=== PATIENT | male | born 1970 | race Caucasian/White ===

== ENCOUNTER → 2022-01-15 12:34 | Outpatient (BNVA) | payer MEDICARE, SELFPAY | PROVIDERS: Family Provider Family Medicine; Visit Provider Family Medicine | DX: I10 Essential (primary) hypertension (principal); E11.9 Type 2 diabetes mellitus without complications; E78.5 Hyperlipidemia, unspecified; L40.0 Psoriasis vulgaris | CPT/HCPCS: 80053; 80061; 82043; 83036; 85025 ==

== ENCOUNTER → 2022-05-01 13:03 | Outpatient (BNVA) | payer MEDICARE, SELFPAY | PROVIDERS: Family Provider Family Medicine; PCP Family Medicine; Visit Provider Family Medicine | DX: E11.9 Type 2 diabetes mellitus without complications (principal) | CPT/HCPCS: 80053; 83036 ==

== ENCOUNTER 2022-06-26 09:17 | Outpatient (CLI) | payer MEDICARE, MEDICAID, SELFPAY ==
[2022-06-26] MEDS: iohexol 350 mg/mL 500 mL Btl (per mL) IV (09:49)
[2022-06-26] MEDS: iohexol 350 mg/mL 500 mL Btl (per mL) PO (09:49)
[2022-06-26 10:20] LABS: Basophils # 0.1 10^3/uL (0.0-0.1); Basophils % 0.8 %; Eosinophils # 0.5 10^3/uL (0.0-0.8); Eosinophils % 4.6 %; Hematocrit 46.4 % (42.0-52.0); Hemoglobin 15.6 g/dL (11.7-16.6); Lymphocytes # 2.7 10^3/uL (0.8-4.8); Lymphocytes % 23.8 %; Mean Corpuscular HGB Conc 33.6 g/dL (30.0-36.0); Mean Corpuscular Volume 98.1 fl (80-94); Mean Platelet Volume 9.1 fL (7.4-10.4); Monocytes # 1.1 10^3/uL (0.2-0.9); Monocytes % 9.3 %; Neutrophils # 6.95 10^3/uL (1.8-7.7); Neutrophils % 61.1 %; Nucleated Red Blood Cells % 0 %; Platelet Count 292 10^3/cmm (130-400); Red Blood Count 4.73 10^6/uL (4.1-5.3); Red Cell Distribution Width 12.4 % (12.1-15.1); White Blood Count 11.4 10^3/uL (4.0-10.0)
[2022-06-26 10:44] LABS: Alanine Aminotransferase 38 U/L (0-41); Alkaline Phosphatase 179 U/L (40-130); Anion Gap 14.6 (5-19); Aspartate Amino Transferase 23 U/L (0-40); Blood Urea Nitrogen 13 mg/dL (6-20); Carbon Dioxide 29 mmol/L (22-29); Chloride 96 mmol/L (98-107); Globulin 2.6 g/dL (1.3-4.6); Glomerular Filtration Rate 88.6 mL/min (90-130); Glucose 250 mg/dL (65-115); Osmolality Calculated 289 mOsm/kg (285-295); Potassium 4.6 mmol/L (3.5-5.1); Sodium 135 mmol/L (136-145); Total Bilirubin 0.6 mg/dL (0.15-1.2); Total Protein 6.6 g/dL (6.6-8.7)
[2022-06-26 11:08] LABS: HIV 1 & 2 Antibody Non-Reactive (Non-Reactiv); HIV 1 & 2 Antigen Non-Reactive (Non-Reactiv)
[2022-06-26 11:17] LABS: Hepatitis A Antibody IgM Non-Reactive (Nonreactive); Hepatitis B Core AB, Total Non-Reactive (Nonreactive); Hepatitis B Surface AB 3.5 (11.5-1000); Hepatitis B Surface Antigen Non-Reactive (Nonreactive); Hepatitis C Virus Antibody Non-Reactive (Nonreactive)
--- NOTE | 2022-06-26 16:00 | CT_ITS ---
WS: [id number] CT ABDOMEN PELVIS TECHNIQUE: Contrast-enhanced CT of the abdomen and pelvis with coronal and sagittal reformatted image s. CLINICAL INFORMATION: R10.31 - Right lower quadrant pain COMPARISON: CT 2014 DLP: 962.[address] scans at [facility] use at least one of these dose optimization techniques: automated e xposure control; mA and/or kV adjustment per patient size (includes targeted exams where dose is matc hed to clinical indication); or iterative reconstruction. FINDINGS: Hepatomegaly diffuse fatty infiltration the liver. Cholecystectomy clips. Normal portal vein and sple mary vein. Normal pancreatic parenchymal enhancement. Splenic granulomas. Normal GE junction. Lung bas es are well aerated. Adrenal glands are normal. Normal renal parenchymal enhancement. No hydronephros is. Urine distended bladder. Enlarged prostate. Sigmoid constipation. A few sigmoid diverticuli. Diastases of the rectus abdominis with ventral bulgi ng of small and large bowel. No evidence of incarceration or obstruction. This is similar in appearan ce to previous. Normal caliber abdominal aorta. Celiac and SMA are patent. No periaortic or retroperitoneal lymphaden opathy. CT/CT abdomen pelvis w con* [id number] IMPRESSION: 1. Hepatomegaly diffuse fatty infiltration liver. 2. Cholecystectomy. 3. Normal renal parenchymal enhancement. No hydronephrosis. 4. Urine distended bladder. Prominent prostate. 5. Diastases of the rectus abdominis musculature with ventral bulging of mesen teric fat with small and large bowel. No incarceration or obstruction. This is similar in appearance to previous. 6. No other acute findings..
[2022-06-30 12:24] LABS: Quantiferon Mitogen >10.00 IU/mL; Quantiferon Nil 0.03 IU/mL; Quantiferon Plus TB2 0.01 IU/mL; Quantiferon TB Gold NEGATIVE (NEGATIVE)
== END 2022-06-26 09:18 | disposition home or self-care (01) ==
LOC: RAD 09:22
PROVIDERS: Dermatology; PCP Family Medicine; Visit Provider Family Medicine
DX: Z79.899 Other long term (current) drug therapy (principal); R16.0 Hepatomegaly, not elsewhere classified; K76.0 Fatty (change of) liver, not elsewhere classified; Z90.49 Acquired absence of other specified parts of digestive tract
CPT/HCPCS: 36415; 74177; 80053; 85025; 86480; 86705; 86706; 86709; 86803; 87340; 87806; Q9967

== ENCOUNTER → 2022-09-07 12:48 | Outpatient (BNVA) | payer MEDICARE, SELFPAY | PROVIDERS: PCP Family Medicine; Visit Provider Dermatology | DX: L02.225 Furuncle of perineum (principal) | CPT/HCPCS: 99214 ==

== ENCOUNTER → 2022-09-11 08:05 | Outpatient (BNVA) | payer MEDICARE, SELFPAY | PROVIDERS: PCP Family Medicine; Visit Provider Family Medicine | DX: E11.9 Type 2 diabetes mellitus without complications (principal); F17.210 Nicotine dependence, cigarettes, uncomplicated; I10 Essential (primary) hypertension; E78.5 Hyperlipidemia, unspecified | CPT/HCPCS: 80053; 83036 ==

== ENCOUNTER 2022-09-21 11:04 | Outpatient (CLI) | payer MEDICARE, SELFPAY ==
--- NOTE | 2022-09-21 11:15 | CT_ITS ---
WS: [id number] LDCT LUNG CANCER SCREENING HISTORY: screening TECHNIQUE: Axial imaging performed from the apices to 1 cm below the costophrenic angles. Coronal and sagittal reformats are submitted with axial MIP series. All CT scans at [facility] use at least one of these dose optimization techniques: automated exposure control; mA and/or kV adjustment per patient size (includes targeted exams where dose is matched to clinical indication); or iterativ e reconstruction. DLP: 108.29 mGy.cm DIvol: Mean CTDIvol: 2.50 (mGy) COMPARISON: None available. Diagnostic quality: Satisfactory Lungs: No pulmonary nodule or mass. No pneumonia. No endobronchial lesions. Heart: Normal size heart with no pericardial effusion.. Other findings: No mediastinal or hilar adenopathy. Normal size aortic and pulmonary artery. Normal a drenal glands. Prior cholecystectomy. CT/CT lung screening [id number] IMPRESSION: LUNG-RADS: 1-Negative FOLLOW UP: 12 Month: Continue annual screening with LDCT OTHER FINDINGS (S MODIFIER): None.
== END 2022-09-21 11:05 | disposition home or self-care (01) ==
PROVIDERS: PCP Family Medicine; Visit Provider Family Medicine
DX: Z12.2 Encounter for screening for malignant neoplasm of respiratory organs (principal); F17.210 Nicotine dependence, cigarettes, uncomplicated
CPT/HCPCS: 71271; 80053; 83036

== ENCOUNTER 2022-12-11 10:20 | Emergency (ER) | payer MEDICARE, MEDICAID, SELFPAY ==
[2022-12-11 10:49] VITALS: BP 126/90; PULSE 93; RESP 16; TEMP 36.6; O2SAT 95; BMI 31.1
[2022-12-11 11:24] LABS: Basophils # 0.1 10^3/uL (0.0-0.1); Basophils % 0.9 %; Eosinophils # 0.4 10^3/uL (0.0-0.8); Eosinophils % 4.4 %; Hematocrit 52.3 % (37-53); Lymphocytes # 2.3 10^3/uL (0.8-4.8); Mean Corpuscular HGB Conc 36.1 g/dL (30-55); Mean Corpuscular Hemoglobin 34.4 pg (27-33); Mean Corpuscular Volume 95.3 fl (82-101); Mean Platelet Volume 9.7 fL (7.4-10.4); Monocytes # 1.1 10^3/uL (0.2-0.9); Monocytes % 11.4 %; Neutrophils # 5.39 10^3/uL (1.8-7.7); Neutrophils % 57.8 %; Nucleated Red Blood Cells % 0 %; Platelet Count 209 10^3/cmm (157-399); Red Blood Count 5.49 10^6/uL (3.85-5.65); Red Cell Distribution Width 12.5 % (12.1-15.1); White Blood Count 9.32 10^3/uL (3.29-11.43)
[2022-12-11 11:42] LABS: Alanine Aminotransferase 23 U/L (0-41); Albumin Level 4.3 g/dL (3.5-5.2); Alkaline Phosphatase 131 U/L (40-130); Blood Urea Nitrogen 12 mg/dL (6-20); Calcium 9.3 mg/dL (8.5-10.5); Carbon Dioxide 23 mmol/L (22-29); Chloride 98 mmol/L (98-107); Globulin 2.6 g/dL (1.3-4.6); Glomerular Filtration Rate 141.5 mL/min (90-130); Glucose 362 mg/dL (65-115); Lipase 31 U/L (13-60); Osmolality Calculated 290 mOsm/kg (285-295); Sodium 133 mmol/L (136-145); Total Bilirubin 0.9 mg/dL (0.15-1.2); Total Protein 6.9 g/dL (6.6-8.7)
[2022-12-11 11:45] LABS: Anion Gap 16.4 (5-19); Aspartate Amino Transferase 17 U/L (0-40); Potassium 4.4 mmol/L (3.5-5.1)
== END 2022-12-11 13:06 | disposition left against medical advice (07) ==
LOC: ER 10:29
PROVIDERS: Physician Assistant; Emergency Provider Family Medicine; PCP Family Medicine
DX: Z53.21 Procedure and treatment not carried out due to patient leaving prior to being seen by health care provider (principal)
CPT/HCPCS: 36415; 80053; 83690; 85025; 99283

== ENCOUNTER → 2023-04-22 10:05 | Outpatient (BNVA) | payer MEDICARE, MEDICAID, SELFPAY | PROVIDERS: PCP Family Medicine; Visit Provider Dermatology | DX: L40.0 Psoriasis vulgaris (principal); L30.4 Erythema intertrigo | CPT/HCPCS: 99214 ==

== ENCOUNTER → 2023-05-05 12:20 | Outpatient (BNVA) | payer MEDICARE, OTHER, SELFPAY | PROVIDERS: PCP Clinical Nurse Specialist Adult Health; Visit Provider Clinical Nurse Specialist Adult Health | DX: E78.5 Hyperlipidemia, unspecified (principal); E11.9 Type 2 diabetes mellitus without complications; I10 Essential (primary) hypertension | CPT/HCPCS: 80053; 80061; 83036; 85025 ==

== ENCOUNTER → 2023-06-22 14:02 | Outpatient (BNVA) | payer MEDICARE, MEDICAID, OTHER, SELFPAY | PROVIDERS: PCP Clinical Nurse Specialist Adult Health; Visit Provider Dermatology | DX: L40.0 Psoriasis vulgaris (principal); Z79.899 Other long term (current) drug therapy; L30.4 Erythema intertrigo; D22.5 Melanocytic nevi of trunk; I83.91 Asymptomatic varicose veins of right lower extremity | CPT/HCPCS: 99214 ==

== ENCOUNTER 2023-06-30 10:23 | Outpatient (CLI) | payer MEDICARE, MEDICAID, SELFPAY ==
[2023-07-02 16:50] LABS: Quantiferon Mitogen 7.84 IU/mL; Quantiferon Nil 0.05 IU/mL; Quantiferon Plus TB1 0.02 IU/mL; Quantiferon Plus TB2 0.01 IU/mL; Quantiferon TB Gold NEGATIVE (NEGATIVE)
== END 2023-06-30 10:24 | disposition home or self-care (01) ==
LOC: LAB 10:27
PROVIDERS: PCP Clinical Nurse Specialist Adult Health; Visit Provider Dermatology
DX: Z79.899 Other long term (current) drug therapy (principal)
CPT/HCPCS: 36415; 86480

== ENCOUNTER 2023-09-18 20:52 | Emergency (ER) | payer MEDICARE, MEDICAID, SELFPAY ==
[2023-09-18 20:57] VITALS: BP 109/69; PULSE 128; RESP 20; TEMP 36.8; O2SAT 99; BMI 28.0
--- NOTE | 2023-09-18 21:57 | XRR_ITS ---
PROCEDURE INFORMATION: Exam: XR Chest Exam date and time: 09/18/2023 10:01 PM Age: 53 years old Clinical indication: Shortness of breath; Patient HX: C/O SOB. History of gastric cancer. ; Additional info: Amphetamine use, SOB TECHNIQUE: Imaging protocol: Radiologic exam of the chest. Views: 1 view. COMPARISON: CT lung screening [id number] 09/21/2022 11:28 AM FINDINGS: Lungs: Unremarkable. No consolidation. Pleural spaces: Unremarkable. No pleural effusion. No pneumothorax. Heart/Mediastinum: Unremarkable. No cardiomegaly. Bones/joints: Mild dextroscoliosis. XR/XR chest 1V portable [id number] IMPRESSION: No acute findings.
--- NOTE | 2023-09-18 21:57 | ECG_ITS ---
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 Measurements Intervals [place] Rate: 109 P: -12 [place]: 110 QRS: 20 QRSD: 88 T: 59 QT: 349 QTc: 471 Interpretive Statements SINUS TACHYCARDIA WITH SHORT [place] INTERVAL ABNORMAL RHYTHM ECG Compared to ECG 11/14/2015 23:15:43 No significant changes Electronically Signed On 09-19-2023 11:41:19 CDT by Jose Glass M.D. [email or web address]
--- NOTE | 2023-09-18 22:00 | PC.NURSE ---
Questioned patients intentions on coming to ER, pt states he is upset with himself for doing drugs after being clean and wants help staying clean. Pt denies any suicidal or homicidal thoughts. Pt is pleasant and corporative
[2023-09-18 22:03] LABS: Basophils # 0.1 10^3/uL (0.0-0.1); Basophils % 0.7 %; Eosinophils # 0.4 10^3/uL (0.0-0.8); Lymphocytes # 2.7 10^3/uL (0.8-4.8); Lymphocytes % 20.2 %; Mean Corpuscular HGB Conc 34.6 g/dL (30-55); Mean Corpuscular Hemoglobin 33.9 pg (27-33); Mean Corpuscular Volume 97.8 fl (82-101); Mean Platelet Volume 10.2 fL (7.4-10.4); Monocytes # 1.9 10^3/uL (0.2-0.9); Monocytes % 14.4 %; Neutrophils # 8.24 10^3/uL (1.8-7.7); Neutrophils % 61.3 %; Nucleated Red Blood Cells % 0 %; Platelet Count 226 10^3/cmm (157-399); Red Blood Count 5.11 10^6/uL (3.85-5.65); Red Cell Distribution Width 12.3 % (12.1-15.1); White Blood Count 13.44 10^3/uL (3.29-11.43)
[2023-09-18 22:24] LABS: Alanine Aminotransferase 16 U/L (0-41); Albumin Level 3.9 g/dL (3.5-5.2); Alkaline Phosphatase 157 U/L (40-130); Anion Gap 18.1 (5-19); Aspartate Amino Transferase 12 U/L (0-40); Blood Urea Nitrogen 29 mg/dL (6-20); Calcium 9.6 mg/dL (8.5-10.5); Carbon Dioxide 21 mmol/L (22-29); Chloride 96 mmol/L (98-107); Creatinine Clr Calc Pharmacy 89.4904; Globulin 3.1 g/dL (1.3-4.6); Glomerular Filtration Rate 63.3 mL/min (90-130); Glucose 467 mg/dL (65-115); Osmolality Calculated 298 mOsm/kg (285-295); Potassium 4.1 mmol/L (3.5-5.1); Sodium 131 mmol/L (136-145); Thyroid Stimulating Hormone 3.38 uIU/mL (0.27-4.20); Total Bilirubin 1.4 mg/dL (0.15-1.2)
[2023-09-18 22:25] LABS: Acetaminophen < 5.0 ug/mL (10-30); Alcohol Level < 10 mg/dL (0-10); Salicylate < 0.3 mg/dL (3-10)
--- NOTE | 2023-09-18 22:41 | ED.C_ITS ---
HPI - Psych 2 General: Chief Complaint: Psychiatric Symptoms Stated Complaint: SI Time Seen by Provider: 09/18/23 21:08 History of Present Illness: 53-year-old gentleman who comes to the [facility] with family members today. He presents stating that he is addicted to methamphetamine and would like to stop. He is concerned, because he has diabetes and a hypertension history. He has used methamphetamine today orally, but has recently injected as well. He complains of left forearm pain, and right hand pain and redness. He denies fever. He is not vomiting. He is not suicidal or homicidal. Review of Systems 2 Const: Denies: fever(s) Card: Reports: chest pain (Intermittent) Resp: Denies: dyspnea GI: Denies: vomiting Skin/Breast: Reports: rash and erythema PFSH ED 2 PFSH: Medical History Hiatal hernia RANJAN (obstructive sleep apnea) noncompliant with CPAP GERD (gastroesophageal reflux disease) Psychiatric care Dyslipidemia Plaque psoriasis Benign essential HTN Type 2 diabetes mellitus, without long-term current use of insulin History of substance abuse meth - sober for 10 Surgical History History of colostomy reversal History of colectomy History of appendectomy Family History Other CAD (coronary artery disease) Diabetes mellitus, type 2 Denies family history of Clotting disorder Anesthesia complication Bleeding disorder Social History Smoking and tobacco/nicotine status: current every day tobacco/nicotine user cigarettes Alcohol intake: current Alcohol intake frequency: holidays/special occasions only Substance/Drug Use: former Adopted: No Lives independently: Yes Household members: family Marital status: Physical Exam 2 Const: COMMON NORMALS: no acute distress and alert GENERAL APPEARANCE: c ooperative and anxious (Mildly); not ill appearing ORIENTATION/CONSCIOUSNESS: Yes oriented to person, Yes oriented to place and Yes oriented to time HENMT: COMMON NORMALS: normocephalic, atraumatic and Normal external nose present HEAD & SCALP: normocephalic and atraumatic FACE & SINUS: normal facial exam and face symmetric NOSE: Normal external nose present Eye: COMMON NORMALS: Equal, round and reactive pupils present and EOMs intact bilaterally PUPIL: Yes Equal, round and reactive pupils present Neck/C-Spine: GENERAL: Yes trachea midline Chest: CHEST: Yes Symmetrical chest wall rise Resp: COMMON NORMALS: No use of accessory muscles and clear to auscultation bilaterally EFFORT & INSPECTION: Yes able to speak in complete sentences A USCULTATION: clear to auscultation bilaterally Cardio: COMMON NORMALS: regular rhythm RATE: tachycardic RHYTHM: regular rhythm Extremity: COMMON NORMALS: no pedal edema NARRATIVE EXTREMITY EXAM: Left forearm dorsal tenderness, mild swelling. No redness or streaking. Right dorsum hand tenderness and redness. Minimal swelling. No streaking. Neuro: SENSORIUM/ORIENTATION: Yes alert, Yes oriented to person, Yes oriented to place and Yes oriented to time Psych: ACTIVITY/MOTOR BEHAVIOR: Yes fidgeting Course 2 Vital Signs: Vital signs: Vital Signs Temperature 98.2 F 09/18/23 20:57 Pulse Rate 128 H 09/18/23 20:57 Respiratory Rate 20 H 09/18/23 20:57 Blood Pressure 109/69 09/18/23 20:57 Pulse Oximetry 99 09/18/23 20:57 Oxygen Delivery Me thod Room Air 09/18/23 20:57 MDM - Psych Medical Decision Making The patient is not suicidal or homicidal. He is tachycardic, presumably from methamphetamine intoxication. His blood pressure is normal. No fever. White blood cell count is 13.4 with hemoglobin is 17.3. Bicarbonate is 21. Creatinine is 1.2. His blood sugar is 467. No alcohol. The patient was unable to urinate. He presents with no suicidal or homicidal ideation. When the patient's family decided to leave, the patient jumped out of his bed, and asked to leave himself. He is awake, alert, and oriented. He was allowed to sign an AMA form, and exit the facility. Lab Data 09/18/23 21:15 09/18/23 21:15 Radiology Impressions Chest X-Ray 09/18/23 21:57 IMPRESSION: No acute findings. Laboratory Results WBC 13.44 10^3/uL (3.29-11.43) H 09/18/23 21:15 RBC 5.11 10^6/uL (3.85-5.65) 09/18/23 21:15 Hgb 17.30 g/dL (11.27-16.99) H 09/18/23 21:15 Hct 50.0 % (37-53) 09/18/23 21:15 MCV 97.8 fl (82-101) 09/18/23 21:15 MCH 33.9 pg (27-33) H 09/18/23 21:15 MCHC 34.6 g/dL (30-55) 09/18/23 21:15 RDW 12.3 % (12.1-15.1) 09/18/23 21:15 Plt Count 226 10^3/cmm (157-399) 09/18/23 21:15 MPV 10.2 fL (7.4-10.4) 09/18/23 21:15 Neut % (Auto) 61.3 % 09/18/23 21:15 Lymph % (Auto) 20.2 % 09/18/23 21:15 Arthur % (Auto) 14.4 % 09/18/23 21:15 Eos % (Auto) 3.0 % 09/18/23 21:15 Baso % (Auto) 0.7 % 09/18/23 21:15 Neut # (Auto) 8.24 10^3/uL (1.8-7.7) H 09/18/23 21:15 Lymph # (Auto) 2.7 10^3/uL (0.8-4.8) 09/18/23 21:15 Arthur # (Auto) 1.9 10^3/uL (0.2-0.9) H 09/18/23 21:15 Eos # (Auto) 0.4 10^3/uL (0.0-0.8) 09/18/23 21:15 Baso # (Auto) 0.1 10^3/uL (0.0-0.1) 09/18/23 21:15 Nucleated RBC % (auto) 0 % 09/18/23 21:15 Nucleated RBCs # 0.0 /100WBC 09/18/23 21:15 Sodium 131 mmol/L (136-145) L 09/18/23 21:15 Potassium 4.1 mmol/L (3.5-5.1) 09/18/23 21:15 Chloride 96 mmol/L (98-107) L 09/18/23 21:15 Carbon Dioxide 21 mmol/L (22-29) L 09/18/23 21:15 Anion Gap 18.1 (5-19) 09/18/23 21:15 BUN 29 mg/dL (6-20) H 09/18/23 21:15 Creatinine 1.2 mg/dL (0.7-1.2) 09/18/23 21:15 GFR Calculation 63.3 mL/min (90-130) L 09/18/23 21:15 Glucose 467 mg/dL (65-115) H 09/18/23 21:15 Calculated Osmolality 298 mOsm/kg (285-295) H 09/18/23 21:15 Calcium 9.6 mg/dL (8.5-10.5) 09/18/23 21:15 Total Bilirubin 1.4 mg/dL (0.15-1.2) H 09/18/23 21:15 AST 12 U/L (0-40) 09/18/23 21:15 ALT 16 U/L (0-41) 09/18/23 21:15 Alkaline Phosphatase 157 U/L (40-130) H 09/18/23 21:15 Total Protein 7.0 g/dL (6.6-8.7) 09/18/23 21:15 Albumin 3.9 g/dL (3.5-5.2) 09/18/23 21:15 Globulin 3.1 g/dL (1.3-4.6) 09/18/23 21:15 TSH 3.38 uIU/mL (0.27-4.20) 09/18/23 21:15 Salicylates < 0.3 mg/dL (3-10) L 09/18/23 21:15 Acetaminophen < 5.0 ug/mL (10-30) L 09/18/23 21:15 Ethyl Alcohol < 10 mg/dL (0-10) 09/18/23 21:15 XR interpretation done by ED provider, pending radiology final review Discharge Plan Discharge Patient Disposition: Left Against Medical Advice Clinical Impression: Methamphetamine use disorder, severe Condition: Stable Prescriptions: No Action aspirin 81 mg capsule 81 mg PO DAILY fluoxetine [Prozac] 20 mg capsule 20 mg PO DAILY Qty: 30 4RF naltrexone 50 mg tablet 50 mg PO DAILY Qty: 30 4RF trazodone 50 mg tablet 100 mg PO .HS PRN (Reason: insomnia) Qty: 60 4RF ketoconazole 2 % cream 1 applic topical BID Qty: 30 3RF Rx Instructions: Apply to affected areas in skin folds x3 weeks then prn for flares atorvastatin 20 mg tablet 20 mg PO DAILY Qty: 90 3RF famotidine 40 mg tablet 40 mg PO DAILY Qty: 90 3RF lisinopril 20 mg tablet 20 mg PO DAILY Qty: 90 3RF Levemir FlexPen 100 unit/mL (3 mL) insulin pen 20 unit SUBCUT .at bedtime Qty: 15 2RF metformin 1,000 mg tablet extended release 24 hr 1,000 mg PO DAILY Qty: 90 3RF (DME) blood-glucose meter Misc See Rx Instructions .ROUTE .MEDSUPPLY Qty: 1 0RF Rx Instructions: As directed to test blood sugar BID (DME) Blood Glucose Test Strip See Rx Instructions .ROUTE .MEDSUPPLY Qty: 50 5RF Rx Instructions: As directed to test blood sugar BID (DME) lancets 25 gauge misc See Rx Instructions .ROUTE .MEDSUPPLY Qty: 100 5RF Rx Instructions: As directed to test blood sugar BID Skyrizi 150 mg/mL pen injector 150 mg SUBCUT .[id number] Qty: 1 6RF Rx Instructions: Inject 150mg subcutaneously every 12 weeks Referrals: Bo Garcia UI PROGRAMMER [Primary Care Provider] - Coding Level of Care Code ED Coiled Tubing Supervisor for Arelis Samaniego
== END 2023-09-18 22:55 | disposition left against medical advice (07) ==
PROVIDERS: Emergency Provider Emergency Medicine; PCP Clinical Nurse Specialist Adult Health
DX: F15.20 Other stimulant dependence, uncomplicated (principal); Z53.29 Procedure and treatment not carried out because of patient's decision for other reasons; Z79.82 Long term (current) use of aspirin; Z79.84 Long term (current) use of oral hypoglycemic drugs; Z79.4 Long term (current) use of insulin; F17.210 Nicotine dependence, cigarettes, uncomplicated; E78.5 Hyperlipidemia, unspecified; I10 Essential (primary) hypertension; E11.9 Type 2 diabetes mellitus without complications
CPT/HCPCS: 71045; 80053; 80307; 84443; 85025; 93005; 99285

== ENCOUNTER → 2023-11-12 10:36 | Outpatient (BNVA) | payer MEDICARE, OTHER, SELFPAY | PROVIDERS: PCP Clinical Nurse Specialist Adult Health; Visit Provider Clinical Nurse Specialist Adult Health | DX: I10 Essential (primary) hypertension (principal); E11.9 Type 2 diabetes mellitus without complications | CPT/HCPCS: 80053; 80061; 83036; 84443; 85025 ==

== ENCOUNTER 2023-12-03 13:22 | Outpatient (CLI) | payer MEDICARE, MEDICAID, SELFPAY ==
[2023-12-03 14:41] LABS: Ferritin 460 ng/mL (30-400); Iron 106 ug/dL (59-158); Percent Saturation 38.6 % (20-50); Total Iron Binding Capacity 274 mcg/dl; Unsaturated Iron Binding 168 ug/dL (112-347)
[2023-12-03 14:59] LABS: Hepatitis A Antibody IgM Non-Reactive (Nonreactive); Hepatitis B Core AB, Total Non-Reactive (Nonreactive); Hepatitis B Surface AB < 3.5 (11.5-1000); Hepatitis B Surface Antigen Non-Reactive (Nonreactive); Hepatitis C Virus Antibody Non-Reactive (Nonreactive)
== END 2023-12-03 13:23 | disposition home or self-care (01) ==
LOC: LAB 13:23
PROVIDERS: PCP Clinical Nurse Specialist Adult Health; Visit Provider Clinical Nurse Specialist Adult Health
DX: R74.8 Abnormal levels of other serum enzymes (principal)
CPT/HCPCS: 36415; 82728; 83540; 83550; 86705; 86706; 86709; 86803; 87340

== ENCOUNTER 2023-12-08 08:08 | Outpatient (CLI) | payer MEDICARE, MEDICAID, SELFPAY ==
--- NOTE | 2023-12-08 08:00 | US_ITS ---
WS: [id number] RIGHT UPPER QUADRANT ULTRASOUND HISTORY: elevated LFTs alk phos COMPARISON: 10/17/2006 Liver: 18.0 cm in length. Top normal size liver. No mass or intrahepatic dilatation. Portal Vein: Normal hepatopetal flow with monophasic waveform. Gallbladder: Prior cholecystectomy. CBD: 0.4 cm Pancreas: Not visualized. Right kidney: 11.8 cm in length. Normal size and echogenicity. No hydronephrosis or mass. Aorta and IVC: Unremarkable abdominal aorta and IVC. No ascites. US/US abdomen limited [id number] IMPRESSION: 1. Status post cholecystectomy since the prior examination. 2. No bile duct dilatation. 3. Liver is top normal size.
== END 2023-12-08 08:09 | disposition home or self-care (01) ==
LOC: RAD 08:09
PROVIDERS: PCP Clinical Nurse Specialist Adult Health; Visit Provider Clinical Nurse Specialist Adult Health
DX: R74.8 Abnormal levels of other serum enzymes (principal); Z90.49 Acquired absence of other specified parts of digestive tract
CPT/HCPCS: 76705

== ENCOUNTER → 2024-02-22 13:25 | Outpatient (BNVA) | payer MEDICARE, MEDICAID, SELFPAY | PROVIDERS: PCP Clinical Nurse Specialist Adult Health; Visit Provider Nurse Practitioner Family | DX: L40.0 Psoriasis vulgaris (principal); L30.4 Erythema intertrigo; D22.5 Melanocytic nevi of trunk; I83.93 Asymptomatic varicose veins of bilateral lower extremities; F17.200 Nicotine dependence, unspecified, uncomplicated | CPT/HCPCS: 99214 ==

== ENCOUNTER 2024-04-05 17:11 | Emergency (ER) | payer MEDICARE, MEDICAID, SELFPAY ==
[2024-04-05 17:18] VITALS: BP 152/95; PULSE 113; RESP 18; TEMP 36.9; O2SAT 97
--- NOTE | 2024-04-05 17:23 | ED_ITS ---
HPI - Anxiety General: Chief Complaint: Anxiety Stated Complaint: mhe Time Seen by Provider: 04/05/24 17:17 Source: patient Mode of arrival: ambulatory Limitations: no limitations History of Present Illness: Patient is a 54-year-old male with past medical history of bipolar disorder as well as substance abuse who is presenting to the emergency department with acute meth intoxication. States that he is actively trying to get into [facility] for recovery, is unable to do so for a week or week and a half. When he gets anxious states that he maurisio with using meth, he has done so on the first of t his month as well as the . States that he used today a couple of hours prior to coming in and he is extremely anxious, and is having visual hallucinations. States he has been living with his mom until he is not able to get a bed at [facility]. He is not having any suicidal thoughts or homicidal thoughts. No plan. States he wants symptom relief. He is very fidgety at this time. MD complaint: anxiety Onset (ago): hour(s) Severity: moderate Quality: constant and worsening History of similar episodes: Yes Provoking factors: other (Methamphetamines) Associated symptoms: Deny chest pain, chills, fever(s), headache(s), nausea, palpitations or vomiting Related Data Home Medications Medication Instructions Recorded Confirmed aspirin 81 mg capsule 81 mg PO DAILY 01/15/22 03/15/24 Previous Rx's Medication Instructions Recorded blood sugar diagnostic (Blood #50 ea 01/20/22 Glucose Test strips) blood-glucose meter #1 ea 01/20/22 lancets 25 gauge #100 ea 01/20/22 ketoconazole 2 % topical cream 1 applic topical BID #30 grams 06/23/22 risankizumab-rzaa 150 mg/mL 150 mg SUBCUT .[id number] #1 mL 08/06/22 subcutaneous pen injector (Skyrizi) atorvastatin 20 mg tablet 20 mg PO DAILY #90 tabs 05/05/23 famotidine 40 mg tablet 40 mg PO DAILY #90 tabs 05/05/23 lisinopril 20 mg tablet 20 mg PO DAILY #90 tabs 05/05/23 insulin detemir U-100 100 unit/mL 20 unit (0.2 mL) SUBCUT .at 11/12/23 (3 mL) subcutaneous pen (Levemir bedtime #15 mL FlexPen) metformin 1,000 mg tablet 1,000 mg PO DAILY #90 tabs 11/12/23 semaglutide 0.25 mg or 0.5 mg (2 0.25 mg (0.368 mL) SUBCUT .every 7 11/15/23 mg/3 mL) subcutaneous pen injector days #3 mL (Ozempic) naltrexone 50 mg tablet 50 mg PO DAILY #30 tabs 12/03/23 doxycycline hyclate 100 mg tablet 100 mg PO BID 7 days #14 tabs 03/15/24 prednisone 20 mg tablet 20 mg PO DAILY 5 days #5 tabs 03/15/24 fluoxetine 20 mg capsule (Prozac) 20 mg PO DAILY #30 caps 04/05/24 Allergies Allergy/AdvReac Type Severity Reaction Status Date / Time Penicillins Allergy Intermediate ALGY-Redness Verified 03/15/24 15:16 of Skin morphine AdvReac Severe ALGY-Rash Verified 03/15/24 15:16 Review of Systems General: Reports: 10 or more systems reviewed and unremarkable except in HPI and below Const: Reports: other (Substance abuse/meth intoxication); Denies: fever(s), chills or fatigue Eyes: Denies: change in vision ENMT: Denies: throat pain, ear or mastoid pain or nasal discharge Card: Denies: chest pain, palpitations, swelling of feet/ankles or lightheadedness Resp: Denies: dyspnea, productive cough or wheezing GI: Denies: abdominal pain, nausea, vomiting, diarrhea or constipation : Denies: flank pain, difficulty urinating, dysuria or urinary frequency Musc: Denies: neck pain, back pain or joint pain Skin/Breast: Denies: rash Neuro: Denies: headache(s), numbness in extremities or weakness in extremities Psych: Reports: anxiety, irritability, difficulty concentrating and visual hallucinations; Denies: auditory hallucinations, tactile hallucinations, suicidal ideation or homicidal ideation PFSH ED PFSH: Medical History Type 2 diabetes mellitus with insulin therapy Hiatal hernia RANJAN (obstructive sleep apnea) noncompliant with CPAP GERD (gastroesophageal reflux disease) Psychiatric care Dyslipidemia Plaque psoriasis Benign essential HTN History of substance abuse meth - relapsed 2023. Surgical History History of colostomy reversal History of colectomy History of appendectomy Family History Other CAD (coronary artery disease) Diabetes mellitus, type 2 Denies family history of Clotting disorder Anesthesia complication Bleeding disorder Social History Smoking and tobacco/nicotine status: unknown if used tobacco/nicotine Alcohol intake: current Alcohol intake frequency: holidays/special occasions only Substance/Drug Use: former Adopted: No Lives independently: Yes Household members: family Marital status: Physical Exam Const: COMMON NORMALS: patient oriented x3 and no limitations GENERAL APPEARANCE: cooperative, well developed and anxious ORIENTATION/CONSCIOUSNESS: Yes awake, Yes oriented to person, Yes oriented to place and Yes oriented to time OTHER: Hyperactive and fidgeting at this time HENMT: COMMON NORMALS: normocephalic, atraumatic and hearing grossly normal bilaterally HEAD & SCALP: normocephalic and atraumatic Eye: COMMON NORMALS: Equal, round and reactive pupils present, EOMs intact bilaterally and conjunctivae normal CONJUNCTIVA: Yes conjunctivae normal PUPIL: Yes Equal, round and reactive pupils present Neck/C-Spine: COMMON NORMALS: full ROM, supple and no JVD Resp: COMMON NORMALS: normal respiratory effort, No retractions, No use of accessory muscles and clear to auscultation bilaterally AUSCULTATION: clear to auscultation bilaterally Cardio: COMMON NORMALS: no JVD, regular rate, regular rhythm, No clicks present (Cardio), No murmurs present (Cardio) and No rub (Cardio) RATE: regular rate RHYTHM: regular rhythm Extremity: COMMON NORMALS: normal to inspection, full ROM and capillary refill normal Neuro: COMMON NORMALS: patient oriented x3, moves all extremities, no focal motor deficits and no sensory deficits noted SENSORIUM/ORIENTATION: Yes oriented to person, Yes oriented to place and Yes oriented to time Psych: COMMON NORMALS: mental status grossly normal, Normal thought process present and speech normal APPEARANCE: Yes grossly normal ATTITUDE: Yes agitated ACTIVITY/MOTOR BEHAVIOR: Yes psychomotor agitation SPEECH: Yes normal speech MOOD & AFFECT: Yes euthymic mood THOUGHT PROCESS: Normal thought process present THOUGHT CONTENT: No Suicidality present, No Homicidality present and Yes Hallucination(s) present visual ATTENTION/CONCENTRATION: Yes attention grossly intact MEMORY/COGNITION: Yes memory grossly intact INSIGHT: Good insight present (Psych) Skin: COMMON NORMALS: no rashes or lesions noted GENERAL SKIN EXAM: no rashes or lesions noted Course Vital Signs: Vital signs: Vital Signs Temperature 98.4 F 04/05/24 17:18 Pulse Rate 110 H 04/05/24 17:30 Respiratory Rate 18 04/05/24 17:30 Blood Pressure 151/83 04/05/24 17:30 Pulse Oximetry 99 04/05/24 17:30 Oxygen Delivery Me thod Room Air 04/05/24 17:30 MDM - Anxiety Medical Decision Making Patient presented with acute methamphetamine intoxication, extremely fidgeting and anxious on exam. Was requesting medicinal therapy, he has arrangements already made to get to [facility] for rehabilitation. He was given 2 mg of p.o. Ativan and reports significant relief in his symptoms, is ready to discharge home. He did not have any suicidal ideations or homicidal ideations or other concerns that would warrant consultation to inpatient psychiatrist at this time. However, was informed to present with any of these acute onset symptoms and continue plan for getting to [facility]. No radiology studies performed this visit Discharge Plan Discharge Patient Disposition: Home Clinical Impression: Anxiety, Methamphetamine intoxication Condition: Stable Prescriptions: No Action aspirin 81 mg capsule 81 mg PO DAILY naltrexone 50 mg tablet 50 mg PO DAILY Qty: 30 4RF metformin 1,000 mg tablet 1,000 mg PO DAILY Qty: 90 3RF Levemir FlexPen 100 unit/mL (3 mL) insulin pen 20 unit SUBCUT .at bedtime Qty: 15 2RF ketoconazole 2 % cream 1 applic topical BID Qty: 30 3RF Rx Instructions: Apply to affected areas in skin folds x3 weeks then prn for flares atorvastatin 20 mg tablet 20 mg PO DAILY Qty: 90 3RF famotidine 40 mg tablet 40 mg PO DAILY Qty: 90 3RF lisinopril 20 mg tablet 20 mg PO DAILY Qty: 90 3RF doxycycline hyclate 100 mg tablet 100 mg PO BID 7 Days Qty: 14 0RF prednisone 20 mg tablet 20 mg PO DAILY 5 Days Qty: 5 0RF (DME) blood-glucose meter Misc See Rx Instructions .ROUTE .MEDSUPPLY Qty: 1 0RF Rx Instructions: As directed to test blood sugar BID (DME) Blood Glucose Test Strip See Rx Instructions .ROUTE .MEDSUPPLY Qty: 50 5RF Rx Instructions: As directed to test blood sugar BID (DME) lancets 25 gauge misc See Rx Instructions .ROUTE .MEDSUPPLY Qty: 100 5RF Rx Instructions: As directed to test blood sugar BID Skyrizi 150 mg/mL pen injector 150 mg SUBCUT .[id number] Qty: 1 6RF Rx Instructions: Inject 150mg subcutaneously every 12 weeks Ozempic 0.25 mg or 0.5 mg (2 mg/3 mL) pen injector 0.25 mg SUBCUT .every 7 days Qty: 3 3RF fluoxetine [Prozac] 20 mg capsule 20 mg PO DAILY Qty: 30 4RF Discharge Orders: Discharge ED (Routine); Ordered 04/05/24 Ordered By: Khris Sosa Referrals: Bo Garcia, IN CLASS SPECIAL EDUCATION TEACHER [Primary Care Provider] - Patient Instructions: Anxiety (ED) Activity Restrictions/Additional Instructions: Keep plan for following up at [facility]. Avoid use of meth. See attached patient instructions for further education. If you develop any suicidal thoughts, homicidal thoughts, or worsening of symptoms please return to the ED. Coding Level of Care Code ED Belt Measurer for Arelis Samaniego
[2024-04-05] MEDS: LORazepam 2 mg Tablet PO (17:25)
[2024-04-05 17:30] VITALS: BP 151/83; PULSE 110; RESP 18; O2SAT 99
== END 2024-04-05 18:10 | disposition home or self-care (01) ==
PROVIDERS: Emergency Provider Physician Assistant; PCP Clinical Nurse Specialist Adult Health
DX: F41.9 Anxiety disorder, unspecified (principal); F15.129 Other stimulant abuse with intoxication, unspecified; Z79.82 Long term (current) use of aspirin; E11.9 Type 2 diabetes mellitus without complications; I10 Essential (primary) hypertension; E78.5 Hyperlipidemia, unspecified
CPT/HCPCS: 99283

== ENCOUNTER 2024-09-01 09:47 | Outpatient (CLI) | payer OTHER, MEDICAID, SELFPAY | END 2024-09-01 09:48 | disposition home or self-care (01) | PROVIDERS: Visit Provider Nurse Practitioner Family | DX: L40.0 Psoriasis vulgaris (principal) | CPT/HCPCS: 36415; 86480 ==

== ENCOUNTER → 2025-02-08 15:01 | Outpatient (BNVA) | payer OTHER, MEDICAID, SELFPAY | PROVIDERS: Visit Provider Podiatrist Foot & Ankle Surgery | DX: M76.822 Posterior tibial tendinitis, left leg (principal); M76.821 Posterior tibial tendinitis, right leg; M79.671 Pain in right foot; M79.672 Pain in left foot | CPT/HCPCS: 73630; 99204 ==

== ENCOUNTER → 2025-03-01 11:11 | Outpatient (BNVA) | payer OTHER, MEDICAID, SELFPAY | PROVIDERS: Visit Provider Nurse Practitioner Family | DX: L40.0 Psoriasis vulgaris (principal); D22.5 Melanocytic nevi of trunk | CPT/HCPCS: 99214 ==

== ENCOUNTER → 2025-03-22 13:46 | Outpatient (BNVA) | payer OTHER, MEDICAID, SELFPAY | PROVIDERS: PCP Family Medicine; Visit Provider Family Medicine | DX: E11.9 Type 2 diabetes mellitus without complications (principal); Z79.4 Long term (current) use of insulin | CPT/HCPCS: 80053; 80061; 82043; 83036; 85025 ==

== ENCOUNTER 2025-04-03 10:04 | Outpatient (CLI) | payer OTHER, MEDICAID, SELFPAY | END 2025-04-03 10:05 | disposition home or self-care (01) | LOC: SPT 10:05 | PROVIDERS: PCP Family Medicine; Visit Provider Podiatrist Foot & Ankle Surgery | DX: Z46.89 Encounter for fitting and adjustment of other specified devices (principal); M21.40 Flat foot [pes planus] (acquired), unspecified foot | CPT/HCPCS: L3030 ==

== ENCOUNTER → 2025-04-10 08:52 | Outpatient (BNVA) | payer OTHER, MEDICAID, SELFPAY | PROVIDERS: PCP Family Medicine; Visit Provider Podiatrist Foot & Ankle Surgery | DX: E11.69 Type 2 diabetes mellitus with other specified complication (principal); Z79.4 Long term (current) use of insulin; L60.3 Nail dystrophy; Z79.84 Long term (current) use of oral hypoglycemic drugs; M76.822 Posterior tibial tendinitis, left leg; M76.821 Posterior tibial tendinitis, right leg | CPT/HCPCS: 99213 ==